=== PATIENT | male | born 1945 | race Caucasian/White ===

== ENCOUNTER 2022-05-25 21:15 | Outpatient (REF) | payer MEDICARE, SELFPAY ==
[2022-05-25 21:43] LABS: Potassium* 4.5 mmol/L (3.6-5.1)
[2022-05-25 21:45] LABS: Creatinine* 2.5 mg/dL (0.5-1.5); Estimated Glomerular Filt Rate 25.65
== END 2022-05-25 21:16 | disposition home or self-care (01) ==
LOC: NPINS 21:15
PROVIDERS: Referring Provider Nurse Practitioner Family; Visit Provider Nurse Practitioner Family
DX: N18.4 Chronic kidney disease, stage 4 (severe) (principal)
CPT/HCPCS: 82565; 84132

== ENCOUNTER 2022-09-03 22:10 | Outpatient (REF) | payer MEDICARE, SELFPAY ==
[2022-09-03 23:38] LABS: PSA Diagnostic* 0.17 ng/mL (0.10-4.00)
== END 2022-09-03 22:11 | disposition home or self-care (01) ==
LOC: LAB 22:10
PROVIDERS: Visit Provider Physician Assistant
DX: Z85.46 Personal history of malignant neoplasm of prostate (principal)
CPT/HCPCS: 36415; 84153

== ENCOUNTER 2023-08-13 14:48 | Outpatient (REF) | payer MEDICARE, SELFPAY ==
[2023-08-13 16:27] LABS: PSA Diagnostic* 0.25 ng/mL (0.10-4.00)
== END 2023-08-13 14:49 | disposition home or self-care (01) ==
LOC: NPINS 14:48
PROVIDERS: PCP Family Medicine; Visit Provider Internal Medicine
DX: Z85.46 Personal history of malignant neoplasm of prostate (principal)
CPT/HCPCS: 84153